=== PATIENT | male | born 1935 | race African-American/Black ===

== ENCOUNTER 2017-11-17 22:16 | Inpatient (IN) | payer OTHER ==
[~2017-11-17] VITALS: Ht 180.3 cm; Wt 74.6 kg
--- NOTE | ~2017-11-17 | EKG ---
[address] [email or web address] [address] ELECTROCARDIOGRAM REPORT Name: CLAY RASMUSSEN Room #: 242-P [facility] IN M.R.#: [id number] Admission: 11/17/17 Attend Phys: Robert Oro MD Discharge: Date of : 31 Report #: [id number] THIS REPORT FOR: //name// [facility] ED Test Date: 2017-11-17 Test Time: 22:46:59 Pat Name: CLAY RASMUSSEN Department: Room: Gender: M Medical Research Tech: MADALYN : 1935 Requested By: Darrell Rubio Order Number: [id number] MD: Martín Moreira Measurements Intervals [place] Rate: 95 P: 71 HI: 174 QRS: 97 QRSD: 93 T: 106 QT: 361 QTc: 454 Interpretive Statements Sinus rhythm Ventricular premature complex Probable left atrial enlargement Consider left ventricular hypertrophy Borderline T abnormalities, lateral leads Electronically Signed On 11-18-2017 12:17:30 CDT by Martín Moreira [email or web address] <ELECTRONICALLY SIGNED> By: Martín Moreira MD 11/18/17 1217 [id number] 45 Martín Moreira MD /CASSIE
--- NOTE | ~2017-11-17 | H ---
[facility] [place] [address] HISTORY AND PHYSICAL Name: CLAY RAMOS Room #: 406-P ADM IN M.R.#: [id number] Admission: 11/17/17 Attend Phys: Dimitri Roy MD Discharge: Date of : 33 Report #: [id number] THIS REPORT FOR: //name// CC: [facility] Dimitri Lewis MD DATE OF SERVICE: 11/18/2017 CHIEF COMPLAINT: Generalized weakness. HISTORY OF PRESENT ILLNESS: The patient is an 82-year-old male who presents to the [facility] Emergency Department from his group home, [facility] from across the street. He only arrived there about 4 days. Prior to that, he had been hospitalized at [facility] and followup initially with chest pain and mental status changes, then later transferred to what I believe must have been a medical unit for evaluation and rehabilitation. When they felt he had reached maximal benefit. He was transferred to a nursing home unit close to [facility]. However, his was very dissatisfied with the facility and they went home almost immediately. He was there several days until they were able to make arrangements to transfer him to [facility]. In last several months, he has had increasing problems with falls and gait instability and confusion. Actually, his told regarding conversations that she had first noted memory problems dating back almost 12 years. In particular, however, in the last several months, his clinical situation has gotten worse. He needs help dressing. He sometimes cannot walk. He is really not eating well, although did eat well previously. They just returned from a trip to the daughter and son-in-law, out of the state. The trip was uneventful and well otherwise. At baseline, the patient is positive and able to ambulate with his roller walker, according to the . He normally follows with ____ at [facility] and with Dr. Carlos Weaver for his Cardiology and with Dr. Anibal Hare, Nephrology. The patient is often providing me more information today. PAST MEDICAL HISTORY: Hypertension, type 2 diabetes mellitus, hyperlipidemia, coronary artery disease (coronary artery bypass surgery x 4 vessels?, at least 15 years ago), permanent pacemaker implanted in late 2014, recent diagnosis of dementia. ____ and debility. MEDICATIONS AT HOME: Multivitamins with Lutein, Avodart, aspirin, torsemide, terazosin, loratadine, gabapentin, Lantus at bedtime, amantadine, Lyrica, losartan, fenofibrate, amlodipine, benazepril, metoprolol, and p.r.n. lorazepam. [address] [address] HISTORY AND PHYSICAL Name: CLAY RAMOS Room #: 406-P [facility] IN M.R.#: [id number] Admission: 11/17/17 Attend Phys: Dimitri Roy MD Discharge: Date of : 31 Report #: [id number] ALLERGIES: He has no known drug allergies. FAMILY HISTORY: Not available. 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 He smokes a pipe occasionally, but no other known ____. REVIEW OF SYSTEMS: The patient is comatose and the only systems review information that could be obtained documented in the chart. PHYSICAL EXAMINATION: VITAL SIGNS: On arrival in the Emergency Room pulse was 91, respirations 20 per minute, oxygen saturation was 95% O2 nasal cannula (no prior history of lung disease), temperature was 37.5 degrees Celsius, blood pressure 123/70. Reported weight is 151 pounds. GENERAL: The patient is a well-developed, older male with frontal bossing. HEENT: Extraocular muscles could not be adequately tested. Pupils are pinpoint bilaterally but responsive to light. Oropharynx is dry. Dentition is fairly good. No redness or exudates or lesions. NECK AND BACK: No adenopathy or thyromegaly, mass or bruit. No evidence of trauma. There is significant generalized rigidity. CHEST: Thorax is symmetrical. Lungs clear to auscultation bilaterally. Permanent pacemaker in the left chest wall, prior CABG are noted, well healed. CARDIAC: Revealed a regular rhythm without significant murmur, gallop or rub. ABDOMEN: Soft, bowel sounds present, but diminished. No visceromegaly or masses. EXTREMITIES: Peripheral pulses are easily palpated in all 4 extremities. Cogwheel rigidity noted in both upper extremities. NEUROLOGIC: No Babinski sign bilaterally. The patient raises his eyebrows when spoken to, but does not open his eyes spontaneously. His smile is almost crooked with looking noted on the left side of the face. The patient grasps with each hand independently on command and is able to move all feet inadvertently on command. He is able to raise his eyebrows and then squint eyebrows and eyelids on command. Movements are generally very dramatic and his facial affect his rather flat. LABORATORY DATA: EKG normal sinus rhythm with left ventricular hypertrophy and no evidence of cranial infarct. Labs show lactic acid of 0.9, which is normal. NT-proBNP 1154, which is elevated. Urine drug screen was completely negative. Urinalysis specific gravity of 1.020 with pH of less than 85.5. Urine was yellow and cloudy and negative for ketones, nitrite and bilirubin and 1+ for protein, 3+ for blood, 2+ for urine leukocyte esterase. Microscopic evaluation for 3-10 red blood cells per high power field, greater than 25 white blood cells [facility] [address] [place] [address] HISTORY AND PHYSICAL Name: CLAY RAMOS Room #: 406-P ADM IN M.R.#: [id number] Admission: 11/17/17 Attend Phys: Dimitri Roy MD Discharge: Date of : 33 Report #: [id number] per high power field, many white blood cell clumps, and many bacteria. No squamous epithelial cells or urine crystals or gas or mucus was seen and the urine glucose was negative. Blood chemistry showed a sodium of 145, potassium 4.2, chloride of 100, bicarbonate 25, BUN of 107, creatinine 5.9. The anion gap is 12. The estimated GFR was 11. Glucose was 231, calcium was 9.7. Troponin was 4. The CBC showed a white blood cell count of 12,000 with 90% segs, no bands, 3.4% lymphs, 6.1% monocytes, 0.1% eosinophils and 0.4% basophils. The ANC was 10.8, slightly elevated. Platelet count was 199,000, hemoglobin was 12.4, hematocrit of 6.4 and the red blood cell indices were essentially normal. Chest x-ray showed a possible small left pleural effusion versus left basilar parenchymal scarring and a retrocardiac opacity, which could represent infiltrate, scarring, atelectasis or most likely a mass. 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 Please note that the patient was given doses of vancomycin, Zosyn and levofloxacin in the Emergency Department. ASSESSMENT AND PLAN: 1. Altered mental status and gait disturbance and rigidity - I think the patient may have Parkinson's disease, given the cogwheeling, it was very obvious on exam today. I did step out and ask his about other symptoms such as bradykinesia, loss of facial affect, and tremor. She did mention that she had been seeing all those things in recent months. I had not discussed it with her physician. She did make it clear that he had a living will that she would bring copies of in the afternoon and that he would not want to be resuscitated in the event of his cardiac and/or pulmonary demise. This confirms my conversation earlier today with his overnight ICU nurse. At this point, all of the patient's multitude of other problems, I think nutrition and enteric access for medications will be very important. I asked for her permission to give him a Dobhoff feeding tube and we will start tube feedings as soon as that has been accomplished. 2. Acute kidney injury on chronic kidney disease, stage V - I read and appreciated Dr. Lewis's consult note and will defer to his expertise. Incidentally, repeat potassium the day after the initial specimen was hemolyzed and showed a potassium of 5.0, showed a potassium level of 4.3. For now, gentle rehydration and attention to nutritional issues will be pursued. 3. Dementia. This may be Lewy body disease and I will request a neurology consult. I will start the patient on levodopa/carbidopa while he is hospitalized. 4. Dehydration - IV fluids as above, gently. 5. Hypertension - we will defer to Dr. Lewis's recommendation and avoid aggressive over management may compromise renal perfusion. 6. Coronary artery disease - family recently mentioned that the patient has had a complaint of chest pain while at [facility]. This was apparently looked into and we will request records so we can be review them. 7. Hypothyroidism - note resumption of levothyroxine by Dr. Carlos Weaver. [facility] [place] [address] HISTORY AND PHYSICAL Name: CLAY RAMOS Room #: 406-P ADM IN M.R.#: [id number] Admission: 11/17/17 Attend Phys: Dimitri Roy MD Discharge: Date of : 33 Report #: [id number] 8. Retrocardiac mass versus infiltrate - we will continue antibiotics with a likely source is probably renal. 9. Urinary tract infection - the antibiotics orders, culture pending. 10. Hyperlipidemia - we will resume treatment when the patient better able to take medications. 11. Type 2 diabetes mellitus, for a long time. We will put him on tube feedings and serial Accu-Cheks and a sliding scale. <ELECTRONICALLY SIGNED> By: Robert Oro MD 11/20/17 1946 1157 1414 Robert Oro MD /nt
--- NOTE | ~2017-11-17 | HC ---
[facility] [place] [address] CONSULTATION Name: CLAY RASMUSSEN Room #: 242-P ADM IN M.R.#: [id number] Admission: 11/17/17 Attend Phys: Dimitri Roy MD Discharge: Date of : 33 Report #: [id number] THIS REPORT FOR: //name// CC: Dimitri Roy DATE OF SERVICE: 11/18/2017 HISTORY OF PRESENT ILLNESS: This is an 82-year-old male patient who was evaluated by me at the request of Dr. Oro. I discussed the patient with him and he very kindly updated me on the patient's history before I saw this patient. I talked to the nurses looking after this patient. No family member is here. Neurology consultation is requested because this patient had some rigidity and some tremor. I reviewed the record and it looks like this patient was conversational, but then he had an acute onset of not responsiveness. I do not know whether any focal neurological deficit was noticed that time. He has become better, but he is still not back to the baseline. He was able to carry out a conversation with me. He denies any rigidity, but when I saw him, he does have rigidity and some tremor. REVIEW OF SYSTEMS: Indicate that I have talked to Dr. Oro. He was at [facility] and then went to [facility] and then apparently the took him home. Again, the history is not very clear in him, but looks like he has prolonged illness. He has memory deficit which is going on for some time. However, it has become worse recently. If I understand from the records, he does have a pacemaker. How long he has his pacemaker is not clear and I do not know whether it is MRI compatible or not. He does have generalized muscle weakness, chronic kidney disease, hypertension. He does have one of the medication is gabapentin. He is on Aricept, so I suspect some time they must have figured out that he has some dementia. I carried out the 14-point review of system from the record and this was his relevant 14-point review of system. He does not look like his vision and ENT is any different. He is not complaining of any chest pain, respiratory difficulty, new musculoskeletal, constitutional, dermatological, hematological, psychiatric, throat, allergic symptom. His creatinine has gone up from his baseline creatinine. PAST MEDICAL HISTORY: Positive for some decreased memory for a long time which has become worse recently. FAMILY HISTORY: I do not find any family history for any early dementia. SOCIAL HISTORY: He says he does not drink alcohol. PHYSICAL EXAMINATION: Indicate he is alert. He is responsive. He does not know what month it is. He does not know what day it is. His speech looks fair, but memory and fund of knowledge is diminished. Cranial nerve examination 2-12 looks mostly unremarkable. He moves all 4 extremities. He does not understand [facility] [address] [facility] [place] [address] CONSULTATION Name: CLAY RASMUSSEN Room #: 242-P [facility] IN M.R.#: [id number] Admission: 11/17/17 Attend Phys: Dimitri Roy MD Discharge: Date of : 33 Report #: [id number] to tell me about the position sense. His tone is symmetrical. He did not understand the instruction for cerebellar sign and could not cooperate with the fundus examination. He has no meningeal sign. There is no carotid bruit. He is reasonably well-developed individual who does not have any dysmorphic features of eyes, ears and face. His vision and hearing looks adequate. His blood pressure is 150/79, respirations 15, pulse is 80, and temperature is 99.6. LABORATORY DATA: Indicate hemoglobin of 11.9. His pulses are difficult to feel. His cardiac examination is unremarkable. He does not have any respiratory difficulty or rhonchi on either side. Blood pressure is 150/79, pulse is 80, temperature is 99.6 and respiration is 15. He did have a CT scan of the head, which showed extensive changes. His WBC count is 11.9. His last TSH was normal. He does have some rigidity and tremor. IMPRESSION: This patient does have some rigidity and tremor. I think the best is to work with physical therapy rather than starting him on any treatment for next few days. If that does not respond, then we can give him a trial with the medication, but that may bring the hallucinations on. If he did not have any workup like MRI and an EEG, I think we should do that. RECOMMENDATION: He cannot have an MRI because of pacemaker. So, workup is going to be limited. We will check a B12 level. I will check an EEG. I will suggest working with him for physical therapy rather than starting him on pharmacological intervention. Thank you very much for this referral. By: 1350 [id number] Wellington Rice MD /naresh
--- NOTE | ~2017-11-17 | HC ---
[facility] [address] [place] [address] CONSULTATION Name: CLAY RAMOS Room #: 363-P [facility] IN M.R.#: [id number] Admission: 11/17/17 Attend Phys: Dimitri Roy MD Discharge: 11/24/17 Date of : 31 Report #: [id number] THIS REPORT FOR: //name// CC: Robert Roy DATE OF SERVICE: 11/18/2017 REASON FOR CONSULTATION: Chronic kidney disease. HISTORY OF PRESENT ILLNESS: This is an 82-year-old male who has been followed for a long time in our office by Dr. Anibal Hare. The patient has chronic kidney disease, stage 5. He has a long history of diabetes and hypertension. It is also possible (see family history below) that he had some longstanding focal sclerosis. Nevertheless, he has a baseline creatinine in the office from a couple of months ago of about 3.7-3.8. Again, he has long-term on some antihypertensive meds. I reviewed the last note from the office and Dr. Hare had commented that he was getting worse and there was concern of the need to start dialysis at that time. The patient apparently last week was in [facility] where he was admitted with some mental status changes and weakness, poor intake of food and fluid, and went from there to the [facility]. He was at the [facility] for less than 24 hours and then overnight had a period of unresponsiveness and was sent to the Emergency Room here. Upon arriving here, he was transiently hypotensive. Original blood pressure was 126/70, but he had one blood pressure a couple of hours later of 89/58, heart rate was never elevated. He has had no fever. Oxygen saturations were good throughout. The Emergency Room did a CT scan of his head, which showed extensive amounts of atrophy as well as some old right thalamic infarcts. No acute evidence of new disease was present. He also had a chest x-ray done and I have reviewed that a bit. There are very mild changes, but nothing indicating acute volume overload or infiltrate. He was put in the Intensive Care Unit. We were asked to see him for followup of his chronic Kidney disease. In talking to the patient now, he is lethargic. He cannot give me any history of meaning. His is at the bedside, but she is a poor historian, is not aware much in the way of details of what went on at [facility], or any other recent changes. She does state that over the past few weeks, he has been doing more poorly with decreased intake of food and fluid. She has had a hard time getting him to eat. No described swallowing difficulties. No nausea or vomiting. No new dyspnea. It has been more of a matter of lethargy, at times difficulty speaking and generalized failure to thrive. PAST MEDICAL HISTORY: Hypertension dating back over 50 years, diabetes mellitus type 2 dating back over 20 years or more. He has a history of coronary artery [facility] [address] [place] [address] CONSULTATION Name: CLAY RAMOS Room #: 363-P DIS IN M.R.#: [id number] Admission: 11/17/17 Attend Phys: Dimitri Roy MD Discharge: 11/24/17 Date of : 33 Report #: [id number] disease and he had a coronary artery bypass graft surgery in 1998. He has a history of gout, benign prostate hypertrophy. He also has a pacemaker present. He has mild anemia of chronic kidney disease. He is on a couple of medications suggesting he has some chronic dementia. He also more recently was diagnosed with some hypothyroidism and was on some thyroid replacement. MEDICATIONS: As listed from [facility] and again, he was there for only 24 hours or less include dutasteride 0.5 mg daily, aspirin 81 mg daily, torsemide 20 mg daily, terazosin 10 mg daily, Claritin 10 mg daily, gabapentin 300 mg t.i.d., Lantus insulin 15 units daily, Namenda 7 mg daily, Lyrica 50 mg b.i.d., losartan 100 mg daily, fenofibrate 160 mg daily, amlodipine 10 mg daily, donepezil 10 mg daily, metoprolol 50 mg daily, Ativan 0.5 mg p.r.n. ALLERGIES: No known medical allergies. FAMILY HISTORY: Very strong for renal disease. He had 5 children. At least 3 ended up with renal failure. Two of the sons are now , but I think both had received kidney transplants. Daughter continues to be a long-term patient of the practice and is doing very well with a functioning kidney transplant. She had the familial focal sclerosis. Of the sons, I think one had focal sclerosis and one had diabetes as the cause of the ESRD. SOCIAL HISTORY: The patient is to his second . Chronically lives in [place], [place]. He is retired. REVIEW OF SYSTEMS: Basically as per the history of present illness. He cannot give me much other history at this time. PHYSICAL EXAMINATION: GENERAL: Elderly-appearing male seen in the Intensive Care Unit. VITAL SIGNS: Blood pressure 154/77, heart rate is 87, temperature 98.9, oxygen saturation 100%. HEENT: Shows pupils are 3 mm and reactive. Sclerae nonicteric. Oral mucosa is moist. NECK: Veins are not distended. I hear no bruits. Neck is supple, no adenopathy. CHEST: Fairly clear bilaterally, moderate excursion. CARDIOVASCULAR: Heart has a regular rate and rhythm, no gallop or rub. ABDOMEN: Soft, nontender, not distended. Few bowel sounds are present. No organomegaly or masses are palpable. I cannot percuss or palpate an enlarged bladder. EXTREMITIES: Showed no peripheral edema at this time. He has 2+ peripheral pulses. NEUROLOGIC: He is lethargic. At times, he answers questions appropriately, although he is unaware that he is at [facility]. The other time, his speech drifts off and become somewhat garbled and difficult to understand. [facility] [address] [place] [address] CONSULTATION Name: CLAY RAMOS Room #: 363-P [facility] IN M.R.#: [id number] Admission: 11/17/17 Attend Phys: Dimitri Roy MD Discharge: 11/24/17 Date of : 33 Report #: [id number] Cranial nerves all appear intact. He has fairly good strength symmetrically bilaterally. I see no focal or lateralizing signs at this time. LABORATORY DATA: On admission, sodium 143, potassium 4.2, chloride 106, bicarbonate 25, BUN 107, creatinine 5.4, glucose 155, AST 97, ALT 63, total bilirubin 0.7, calcium 8.8, total protein 6.8, albumin 2.6. Lactate 0.9. White count 12.0, hemoglobin 12.4, hematocrit 36.4, platelets 199,000. Differential on the white count 90 segs, 3 bands, 7 lymphs, 5 monocytes. Urinalysis, specific gravity 1.020, pH 5.5, 1+ protein, 3+ blood, 3+ leukocytes and 25 white cells. Blood gas pH 7.34, pCO2 of 37.9, pO2 of 66.8. ASSESSMENT: 1. Chronic kidney disease, stage 5. This level of function is substantially worse than his baseline. He actually has improved mildly overnight with some moderate range IV fluids. It looks like he had some transient hypotension. With the fluids, his urine output appears to be picking up and his creatinine level appears to be coming down. I will leave him on a bit of IV fluids at this time and hold his other medications and see how he responds. Regardless of his response, he is certainly well-established as a chronic kidney disease stage 5 patient. He may need dialysis. I have spoken a little bit about this with the , but she is a bit uncertain at this time about his wishes and what we wanted to do going forward. We will continue to work with that. 2. Hypertension, longstanding. Again, he was transiently low in the Emergency Room. I am going to hold his antihypertensives at this time and he has several of them. I am sure we will need to get him back on those, but we will keep him on the fluid and off the antihypertensives currently. 3. Mental status changes. He was on numerous different medications, which might have been involved. Also, his blood pressure went down and his renal function worsened, all that could be contributing. He also has some dementia, so it will be difficult to sort out. I think the best course at this time is to hold his medications and see how he responds. 4. Hypothyroidism. This is a more recent problem. I will get him back on the dose of thyroid listed in the office. 5. Coronary artery disease, nearly 20 years post-bypass graft surgery, nothing to suggest active symptoms at this time. 6. Potential chronic dementia. If that is the case, it could well be that this is just either an exacerbation or generalized worsening of that. We will have to certainly factor that into any long-term decisions. PLAN: 1. Continue moderate IV fluids for volume replacement. We will see how his creatinine and blood pressure respond. 2. I will get him back on his thyroid replacement. 3. Follow up labs. 4. Potential for additional neurologic evaluation. 5. I will access the records from both [facility] and our office to [facility] [address] [place] [address] CONSULTATION Name: CLAY RAMOS Room #: 363-P DIS IN M.R.#: [id number] Admission: 11/17/17 Attend Phys: Dimitri Roy MD Discharge: 11/24/17 Date of : 33 Report #: [id number] compare what has been going on more recently. 6. We will follow along the care of this chronically ill patient. <ELECTRONICALLY SIGNED> By: Gal Lewis MD 11/26/17 0712 1018 1913 Gal Lewis MD /nt
--- NOTE | ~2017-11-17 | EEG ---
[facility] [place] [address] ELECTROENCEPHALOGRAM Name: CLAY RAMOS Room #: 239-P ADM IN M.R.#: [id number] Admission: 11/17/17 Attend Phys: Dimitri Roy MD Discharge: Date of : 33 Report #: [id number] THIS REPORT FOR: //name// CC: Dimitri Roy DATE OF SERVICE: 11/21/2017 This patient is being evaluated for altered mental status. EEG was done by placing the electrodes by standard 10/20 system of electrode placement. Both referential and sequential montages were used for recording. Background activity in this patient's EEG is about 6-7 Hz and 30 microvolt. It is a symmetrical activity, but it is slow on both sides. Photic stimulation is unremarkable. The patient's EEG became somewhat more slow and that may be associated with slowing. Throughout the record, no active epileptiform activity was noticed. IMPRESSION: This is an abnormal EEG because it is disorganized and poorly formed, that is a nonspecific abnormality, which can occur with encephalopathy, effect of psychotropic medication, dementia, etc. Clinical correlation is recommended. By: 185 09 Wellington Rice MD /nt
--- NOTE | ~2017-11-17 | EKG ---
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 : 1935 Requested By: Dimitri Roy Order Number: [id number] MD: Dilip Bailey Measurements Intervals [place] Rate: 96 P: [place]: QRS: 94 QRSD: 86 T: 90 QT: 369 QTc: 467 Interpretive Statements Atrial fibrillation Right axis deviation Nonspecific T abnormalities, lateral leads No previous ECG available for comparison Electronically Signed On 11-22-2017 8:07:15 CDT by Dilip Bailey [email or web address] <ELECTRONICALLY SIGNED> By: Dilip Bailey MD, [facility] 11/22/17 0807 D: 050 1040 Dilip Bailey MD, FACC /EPI
[2017-11-17 22:22] VITALS: BP 126/70
[2017-11-17 23:22] LABS: ABSOLUTE NEUTROPHILS 10.8 thou/uL (1.4-8.2); BASOPHILS 0.4 % (0.0-2.0); EOSINOPHILS 0.1 % (0.0-3.0); HEMATOCRIT 36.4 % (42.0-52.0); HEMOGLOBIN 12.4 gm/dL (14.0-18.0); LYMPHOCYTES 3.4 % (24.0-44.0); MCH 29.6 pg (26.0-34.0); MCHC 34.1 g/dL (28.0-37.0); MCV 86.7 fL (80.0-100.0); MONOCYTES 6.1 % (1.0-8.0); PLATELET COUNT 199 thou/uL (150-400); RDW 14.2 % (10.5-14.5)
[2017-11-17 23:23] LABS: URINE BILIRUBIN NEGATIVE (Negative); URINE BLOOD 3+ (Negative); URINE CLARITY CLOUDY; URINE COLOR YELLOW; URINE GLUCOSE-RANDOM* NEGATIVE (Negative); URINE KETONES NEGATIVE (Negative); URINE LEUKOCYTES 3+ (Negative); URINE NITRITE NEGATIVE (Negative); URINE PROTEIN (DIPSTICK) 1+ (Negative); URINE UROBILINOGEN 0.2 E.U./dl (0.2-1.0)
[2017-11-17 23:32] LABS: ANION GAP 12 mmol/L (7-16); BUN 107 mg/dL (7-18); CALCIUM 9.7 mg/dL (8.5-10.1); CHLORIDE 106 mmol/L (98-107); CO2 25 mmol/L (21-32); CREATININE 5.9 mg/dL (0.7-1.3); GLUCOSE 231 mg/dL (74-106); POTASSIUM 4.2 mmol/L (3.5-5.1); SODIUM 143 mmol/L (136-145)
[2017-11-17 23:32] LABS: AMP/METHAMP Negative (Negative); BARBITURATES Negative (Negative); BENZODIAZEPINES Negative (Negative); COCAINE Negative (Negative); METHADONE Negative (Negative); OPIATES Negative (Negative); PCP Negative (Negative)
[2017-11-17 23:35] LABS: BACTERIA >30 Many /HPF (None Seen); CASTS None Seen /LPF (None Seen); CRYSTALS None Seen /LPF (None Seen); MUCUS None Seen strn/LPF (None Seen); SQUAMOUS None Seen /LPF (0-3); URINE RBC 3-10 Few /HPF (0-2); URINE WBC >25 Many /HPF (0-5); WBC CLUMPS Many (None Seen)
[2017-11-17 23:41] LABS: TROPONIN-I < 0.04 ng/mL (<0.06)
[2017-11-18] VITALS (38 sets, daily range): BP systolic 89–160; BP diastolic 58–91
[2017-11-18 01:53] LABS: BE(vivo) -5.4 mmol/L (-2 to +3); HCO3 19.9 mmol/L (22.0-26.0); PCO2 37.9 mmHg (35.0-45.0); PO2 66.8 mmHg (80.0-100.0); pH 7.338 (7.360-7.450); sO2 92.3 % (92.0-98.0)
[2017-11-18] MEDS ORDERED: AVODART0.5 MG PO (02:18)
[2017-11-18] MEDS ORDERED: VITRUM SENIOR1 EACH PO (02:18)
[2017-11-18] MEDS ORDERED: TERAZOSIN HCL10 MG PO (02:19)
[2017-11-18] MEDS ORDERED: ASPIR 8181 M1 PO (02:19)
[2017-11-18] MEDS ORDERED: DEMADEX20 MG PO (02:19)
[2017-11-18] MEDS ORDERED: CLARITIN10 MG PO (02:19)
[2017-11-18] MEDS ORDERED: NEURONTIN 300300 M1 PO (02:20)
[2017-11-18] MEDS ORDERED: LANTUS100 UNIT/M SUBQ (02:20)
[2017-11-18] MEDS ORDERED: NAMENDA 5 MG TAB5 M1 PO (02:21)
[2017-11-18] MEDS ORDERED: LYRICA 50 MG50 MG PO (02:21)
[2017-11-18] MEDS ORDERED: COZAAR 50 MG TA50 M2 PO (02:22)
[2017-11-18] MEDS ORDERED: NORVASC10 MG PO (02:23)
[2017-11-18] MEDS ORDERED: TRIGLIDE160 MG PO (02:23)
[2017-11-18] MEDS ORDERED: ARICEPT 5 MG TAB5 MG PO (02:24)
[2017-11-18] MEDS ORDERED: TOPROL XL25 MG PO (02:24)
[2017-11-18] MEDS ORDERED: ATIVAN0.5 MG PO (02:25)
[2017-11-18 05:06] LABS: HEMATOCRIT 34.9 % (42.0-52.0); HEMOGLOBIN 11.8 gm/dL (14.0-18.0); MCH 29.9 pg (26.0-34.0); MCHC 33.8 g/dL (28.0-37.0); MCV 88.2 fL (80.0-100.0); PLATELET COUNT 175 thou/uL (150-400); RBC 3.95 mil/uL (4.50-6.00); RDW 14.4 % (10.5-14.5); WBC 11.9 thou/uL (4.0-11.0)
[2017-11-18 05:23] LABS: ALBUMIN 2.6 g/dL (3.4-5.0); CALCIUM 8.8 mg/dL (8.5-10.1); CREATININE 5.4 mg/dL (0.7-1.3); DIRECT BILIRUBIN 0.1 mg/dL (<0.1-0.3); TOTAL BILIRUBIN 0.7 mg/dL (<0.1-1.0); TOTAL PROTEIN 6.8 g/dL (6.4-8.2)
[2017-11-18] MEDS ORDERED: NAMENDA XR7 MG PO (06:07)
[2017-11-18 06:36] LABS: ABSOLUTE NEUTROPHILS 10.5 thou/uL (1.4-8.2); ANISOCYTOSIS SLIGHT
[2017-11-19] VITALS (14 sets, daily range): BP systolic 107–168; BP diastolic 69–137
[2017-11-19 04:07] LABS: HEMOGLOBIN 12.2 gm/dL (14.0-18.0); MCH 29.5 pg (26.0-34.0); MCHC 33.8 g/dL (28.0-37.0); MCV 87.4 fL (80.0-100.0); RBC 4.12 mil/uL (4.50-6.00); RDW 14.5 % (10.5-14.5); WBC 13.4 thou/uL (4.0-11.0)
[2017-11-19 04:17] LABS: ALBUMIN 2.6 g/dL (3.4-5.0); CALCIUM 9.1 mg/dL (8.5-10.1); CREATININE 4.6 mg/dL (0.7-1.3); PHOSPHORUS 3.6 mg/dL (2.5-4.9); POTASSIUM 3.8 mmol/L (3.5-5.1)
[2017-11-20] VITALS (7 sets, daily range): BP systolic 101–192; BP diastolic 60–88
[2017-11-20 03:04] LABS: ALBUMIN 2.6 g/dL (3.4-5.0); CALCIUM 8.9 mg/dL (8.5-10.1); CREATININE 3.9 mg/dL (0.7-1.3); PHOSPHORUS 2.7 mg/dL (2.5-4.9); POTASSIUM 3.8 mmol/L (3.5-5.1)
[2017-11-21] VITALS (29 sets, daily range): BP systolic 120–184; BP diastolic 66–149
[2017-11-21 05:39] LABS: ALBUMIN 2.7 g/dL (3.4-5.0); CALCIUM 9.2 mg/dL (8.5-10.1); CREATININE 3.5 mg/dL (0.7-1.3); PHOSPHORUS 2.7 mg/dL (2.5-4.9); POTASSIUM 3.8 mmol/L (3.5-5.1)
[2017-11-21 10:39] LABS: ABSOLUTE NEUTROPHILS 9.8 thou/uL (1.4-8.2); BASOPHILS 0.4 % (0.0-2.0); EOSINOPHILS 1.5 % (0.0-3.0); HEMATOCRIT 34.9 % (42.0-52.0); HEMOGLOBIN 11.8 gm/dL (14.0-18.0); LYMPHOCYTES 8.8 % (24.0-44.0); MCH 29.1 pg (26.0-34.0); MCHC 33.9 g/dL (28.0-37.0); MCV 85.8 fL (80.0-100.0); MONOCYTES 6.2 % (1.0-8.0); PLATELET COUNT 219 thou/uL (150-400); POLYS 83.1 % (36.0-66.0); RBC 4.07 mil/uL (4.50-6.00); RDW 14.3 % (10.5-14.5); WBC 11.8 thou/uL (4.0-11.0)
[2017-11-21 10:46] LABS: CALCIUM 9.2 mg/dL (8.5-10.1); CREATININE 3.3 mg/dL (0.7-1.3)
[2017-11-21 10:51] LABS: APTT 33.3 Seconds (24.5-32.8); INR 1.1; PROTIME 11.1 Seconds (9.3-11.4)
[2017-11-21 10:55] LABS: TROPONIN-I 0.05 ng/mL (<0.06)
[2017-11-21 12:08] LABS: CALCIUM 9.2 mg/dL (8.5-10.1); CREATININE 3.3 mg/dL (0.7-1.3)
[2017-11-21 12:20] LABS: ALBUMIN 2.6 g/dL (3.4-5.0); TOTAL BILIRUBIN 0.4 mg/dL (<0.1-1.0); TOTAL PROTEIN 6.9 g/dL (6.4-8.2)
[2017-11-21 13:02] LABS: URINE BILIRUBIN NEGATIVE (Negative); URINE BLOOD 3+ (Negative); URINE CLARITY CLEAR; URINE COLOR YELLOW; URINE GLUCOSE-RANDOM* NEGATIVE (Negative); URINE KETONES NEGATIVE (Negative); URINE LEUKOCYTES 2+ (Negative); URINE NITRITE NEGATIVE (Negative); URINE PROTEIN (DIPSTICK) 1+ (Negative); URINE UROBILINOGEN 0.2 E.U./dl (0.2-1.0)
[2017-11-21 13:18] LABS: CASTS None Seen /LPF (None Seen); SQUAMOUS 0-3 Few /LPF (0-3)
[2017-11-21 13:19] LABS: URINE RBC 3-10 Few /HPF (0-2); URINE WBC 6-15 Few /HPF (0-5)
[2017-11-21 13:20] LABS: BACTERIA 1-9 Few /HPF (None Seen); CRYSTALS None Seen /LPF (None Seen)
[2017-11-22] VITALS (10 sets, daily range): BP systolic 129–181; BP diastolic 74–105
[2017-11-22 06:36] LABS: ALBUMIN 2.8 g/dL (3.4-5.0); CALCIUM 9.2 mg/dL (8.5-10.1); CREATININE 3.3 mg/dL (0.7-1.3); PHOSPHORUS 3.6 mg/dL (2.5-4.9)
[2017-11-23 03:39] LABS: CALCIUM 8.9 mg/dL (8.5-10.1); PHOSPHORUS 2.5 mg/dL (2.5-4.9); POTASSIUM 3.9 mmol/L (3.5-5.1)
[2017-11-23 04:19] VITALS: BP 179/92
[2017-11-23 06:30] VITALS: BP 157/83
[2017-11-23 07:40] VITALS: BP 160/90
[2017-11-23 12:23] VITALS: BP 152/82
[2017-11-23 17:48] VITALS: BP 141/81
[2017-11-23 19:13] VITALS: BP 154/86
[2017-11-24 04:00] VITALS: BP 141/84
[2017-11-24 06:54] LABS: HEMATOCRIT 32.4 % (42.0-52.0); HEMOGLOBIN 10.9 gm/dL (14.0-18.0); MCH 28.8 pg (26.0-34.0); MCHC 33.6 g/dL (28.0-37.0); MCV 85.9 fL (80.0-100.0); RBC 3.77 mil/uL (4.50-6.00); RDW 14.3 % (10.5-14.5)
[2017-11-24 07:09] LABS: ALBUMIN 2.5 g/dL (3.4-5.0); CALCIUM 8.9 mg/dL (8.5-10.1); CREATININE 2.8 mg/dL (0.7-1.3); PHOSPHORUS 3.2 mg/dL (2.5-4.9); POTASSIUM 3.4 mmol/L (3.5-5.1)
[2017-11-24 07:15] VITALS: BP 154/72
[2017-11-24 11:49] VITALS: BP 121/73
[2017-11-24] MEDS ORDERED: LEVAQUIN 250 M250 MG PO (12:38)
[2017-11-24] MEDS ORDERED: LYRICA25 MG PO (12:39)
[2017-11-24] MEDS ORDERED: SINEMET 25-1001 EAC1 PO (12:44)
[2017-11-24] MEDS ORDERED: CARDURA4 MG PO (12:48)
[2017-11-24] MEDS ORDERED: LOPRESSOR50 PO (12:49)
[2017-11-24] MEDS ORDERED: PROBIOTIC1 EAC1 PO (12:53)
[2017-11-24 16:28] VITALS: BP 147/86
== END 2017-11-24 16:45 | DRG 871 ==
LOC: ER 22:16 → EROBS 23:49 → ICU 23:49 → 4N 11-20 16:33 → ICU 11-21 10:30 → 3W 11-22 02:57
PROVIDERS: Hospitalist; Internal Medicine; Internal Medicine Nephrology; Nurse Practitioner; Psychiatry & Neurology Neuromuscular Medicine
PROC: 4A00X4Z Measurement of Central Nervous Electrical Activity, External Approach (ICD-10-PCS; principal; 2017-11-21)
DX: A41.9 Sepsis, unspecified organism (principal); G92 Toxic encephalopathy; N39.0 Urinary tract infection, site not specified; N18.5 Chronic kidney disease, stage 5; N17.9 Acute kidney failure, unspecified; I12.0 Hypertensive chronic kidney disease with stage 5 chronic kidney disease or end stage renal disease; E87.0 Hyperosmolality and hypernatremia; N18.9 Chronic kidney disease, unspecified; R65.20 Severe sepsis without septic shock; E11.22 Type 2 diabetes mellitus with diabetic chronic kidney disease; I25.10 Atherosclerotic heart disease of native coronary artery without angina pectoris; M10.9 Gout, unspecified; N40.0 Benign prostatic hyperplasia without lower urinary tract symptoms; E03.9 Hypothyroidism, unspecified; R25.1 Tremor, unspecified; E78.5 Hyperlipidemia, unspecified; E86.0 Dehydration; I48.91 Unspecified atrial fibrillation; R13.10 Dysphagia, unspecified; R13.12 Dysphagia, oropharyngeal phase; B96.20 Unspecified Escherichia coli [E. coli] as the cause of diseases classified elsewhere; G20 Parkinson's disease; F02.80 Dementia in other diseases classified elsewhere, unspecified severity, without behavioral disturbance, psychotic disturbance, mood disturbance, and anxiety; Z95.0 Presence of cardiac pacemaker; Z79.899 Other long term (current) drug therapy; Z79.82 Long term (current) use of aspirin; Z95.1 Presence of aortocoronary bypass graft; Z83.3 Family history of diabetes mellitus; Z84.1 Family history of disorders of kidney and ureter; Z86.73 Personal history of transient ischemic attack (TIA), and cerebral infarction without residual deficits
CPT/HCPCS: 10078; 10790; 10879

== ENCOUNTER 2018-03-26 21:08 | Inpatient (IN) | payer OTHER ==
[~2018-03-26] VITALS: Ht 185.4 cm; Wt 79.1 kg
--- NOTE | ~2018-03-26 | O ---
[facility] [place] [address] [place] [address] OPERATIVE REPORT Name: CLAY RAMOS Room #: 355-P ADM IN M.R.#: [id number] Admission: 03/26/18 Attend Phys: Dimitri Roy MD Discharge: Date of : 33 Report #: [id number] THIS REPORT FOR: //name// CC: Gerard Roy DATE OF SERVICE: 03/29/2018 PREOPERATIVE DIAGNOSIS: Left hip femoral neck fracture, displaced. POSTOPERATIVE DIAGNOSIS: Left hip femoral neck fracture, displaced. PROCEDURE PERFORMED: Left hip hemiarthroplasty. SURGEON: Rolando Luke M.D. SEARCH ENGINE OPTIMIZATION STRATEGIST: Madeline Mcmillan PA-C. ANESTHESIA: General endotracheal tube by Dr. Farshad Reid. FLUIDS: 1100 mL crystalloid. ESTIMATED BLOOD LOSS: Approximately 50 mL IMPLANTS UTILIZED: [employer] Synergy unipolar hemiarthroplasty system, size 12 press fit stem, +0 taper sleeve assembly and 54 mm unipolar head. DESCRIPTION OF PROCEDURE: After proper identification of the patient and the operative site in the preoperative holding area, the patient and multiple family members present including his . The patient has serious underlying medical comorbidities and after reviewing the treatment options, the family wished to proceed with the above. Anesthesia discussed in detail, the potential risks with the general anesthetic and his current medical condition and setting. They wished to proceed. The patient was brought back to the operative suite. After induction of satisfactory general endotracheal anesthesia, the patient was carefully positioned in the right lateral decubitus position. Pelvis was stabilized. Left hip was sterilely prepped and draped in usual manner. Final skin draping was with Ioban. Posterior approach to the hip was planned. Skin was incised sharply. Full thickness skin flaps were developed. Gluteal fascia was incised longitudinally. Muscle fibers were spread bluntly. Charnley retractor was carefully positioned to retract the soft tissues. At this point, piriformis tendon was identified and tagged. Short external rotators were carefully divided. A T-shaped capsulotomy was performed and tagged. Fracture hematoma was carefully evacuated. Cork screw was utilized to remove the femoral head. Comminuted neck fracture was noted and femoral neck osteotomy was performed approximately 1 cm above the lesser trochanter. Head measured [address] [address] OPERATIVE REPORT Name: CLAY RAMOS Room #: 355-P [facility] IN M.R.#: [id number] Admission: 03/26/18 Attend Phys: Dimitri Roy MD Discharge: Date of : 33 Report #: [id number] and provided good a suction fit within the acetabulum. Degenerative changes were noted about the femoral head and mild degenerative changes were noted in the acetabulum. No acute fractures were noted. This area was thoroughly irrigated with normal saline. Hand reaming and then serial broaching up to a size 12 stem provided the best overall fit and stability. The patient had reasonably well maintained cortices on his preoperative radiographs and in the setting of trying to reduce his anesthetic as much as possible, a press fit prosthesis was chosen. The trial had good fit and stability. A +0 and 54 mm head provided equal leg lengths, excellent stability, negative Shuck maneuver. Trial implants were removed. The joint was thoroughly irrigated with antibiotic irrigant. The implant was then carefully impacted into position, had excellent fit, matched the patient's [place] anteversion of approximately 15 degrees. Trial implants were again placed on the stem reduced and the final implants measured at +0 and 54 mm head. This was reduced after the hip was thoroughly irrigated with antibiotic irrigant. The capsule was closed with #2 FiberWire. Piriformis tendon was reapproximated with #2 FiberWire, and #1 Vicryl was used to close the gluteal fascia, 0 Vicryl to the deep subcutaneous tissues and 2-0 Vicryl to the more superficial layer. This was followed by monica. Sterile dressing was applied as well as hip abduction orthosis. At the time of dictation, the patient was still in the operative suite. Anesthesia was going to attempt to extubate the patient in the recovery room and discussed due to the patient's serious multiple medical comorbidities and altered mental status, inability to communicate. They discussed they did not know if this would be possible in the recovery room or not or would potentially occur later in the Intensive Care Unit. <ELECTRONICALLY SIGNED> By: Rolando Luke MD 04/06/18 1011 182 50 Rolando Luke MD /nt
--- NOTE | ~2018-03-26 | EKG ---
[address] [address] ELECTROCARDIOGRAM REPORT Name: CLAY RAMOS Room #: 355-P ADM IN M.R.#: [id number] Admission: 03/26/18 Attend Phys: Dimitri Roy MD Discharge: Date of : 33 Report #: [id number] THIS REPORT FOR: //name// [facility] Test Date: 2018-04-06 Test Time: 03:34:39 Pat Name: CLAY RAMOS Department: Room: 355 P Gender: M Classification And Treatment Director: marcelo moreau : 1935 Requested By: Dimitri Roy Order Number: [id number] MD: Martín Moreira Measurements Intervals [place] Rate: 84 P: [place]: QRS: 90 QRSD: 83 T: 88 QT: 372 QTc: 440 Interpretive Statements Atrial flutter with predominant 4:1 AV block Ventricular premature complex Borderline right axis deviation Consider left ventricular hypertrophy Compared to ECG 03/29/2018 10:17:20 Electronically Signed On 04-07-2018 16:46:36 CDT by Martín Moreira [email or web address] <ELECTRONICALLY SIGNED> By: Martín Moreira MD 04/07/18 1646 0334 0334 Martín Moreira MD /EPI
--- NOTE | ~2018-03-26 | EKG ---
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1935 Requested By: Mike Gonzalez Order Number: [id number] MD: Martín Moreira Measurements Intervals [place] Rate: 62 P: -59 [place]: 184 QRS: 57 QRSD: 110 T: 155 QT: 426 QTc: 433 Interpretive Statements Atrial fibrillation Ventricular-paced complexes No further analysis attempted due to paced rhythm Compared to ECG 02/19/2018 12:17:30 Sinus rhythm no longer present Electronically Signed On 03-26-2018 22:33:28 CDT by Martín Moreira [email or web address] <ELECTRONICALLY SIGNED> By: Martín Moreira MD 03/26/18 2233 2154 Martín Moreira MD /EPI
--- NOTE | ~2018-03-26 | HC ---
[facility] [place] [address] CONSULTATION Name: CLAY RAMOS Room #: 355-P [facility] IN M.R.#: [id number] Admission: 03/26/18 Attend Phys: Dimitri Roy MD Discharge: Date of : 33 Report #: [id number] THIS REPORT FOR: //name// CC: Gerard Roy TYPE OF REPORT: Pulmonary consultation. REFERRING PHYSICIAN: Dimitri Roy M.D. REASON FOR REFERRAL: Hypoxia. HISTORY OF PRESENT ILLNESS: The patient is an 82-year-old white male who was admitted on March 26 following a fall. He sustained a left femoral neck fracture. Yesterday, the patient underwent left hip hemiarthroplasty. Postoperatively, the patient was found to be hypoxic. A pulmonary consultation was requested. The patient is a resident of the [facility]. The patient has a history of dementia. According to the , he has been there for the past 10 days. His appetite has been poor while he was at the intermediate. She states that her has had a good appetite all along until recently. In further questioning, appears to not have full understanding of the patient's medical problems. When asked about Parkinson's, she states she has never heard of this. Currently, he is awake but is not verbalized. He was weak and emaciated. He is on 2 liters of O2. PAST MEDICAL HISTORY: As mentioned above. He has a history of chronic kidney disease, hypertension, coronary artery disease, status post coronary artery bypass surgery in 2016, status post permanent pacemaker placement, benign prostatic hypertrophy, advanced dementia, neuropathy, diabetes mellitus type 2, debility and weakness, hypothyroidism and past history of tobacco use. PAST SURGICAL HISTORY: As mentioned above. ALLERGIES: None noted. MEDICATIONS: From the intermediate includes Cardura, Lopressor, Flomax, Synthroid, MiraLax, aspirin, fenofibrate, Namenda, Uniplex, Lopressor, Norvasc, insulin supplements, Desyrel, Ativan and metolazone. FAMILY HISTORY: Noncontributory. SOCIAL HISTORY: The patient has smoked in the past. No history of alcohol use. According to the , he has been at the intermediate, only 10 days ago. The [address] [address] CONSULTATION Name: CLAY RAMOS Room #: 355-P [facility] IN M.R.#: [id number] Admission: 03/26/18 Attend Phys: Dimitri Roy MD Discharge: Date of : 33 Report #: [id number] main reason being he was getting too weak along with unable to do daily living activities. REVIEW OF SYSTEMS: As mentioned above. Notable for worsening dementia for the past several years, it appears the patient has a progressive weakness along with the weight loss otherwise deferred as history has been not reliable. PHYSICAL EXAMINATION: GENERAL: He is awake, alert and appears weak, mildly dyspneic. VITAL SIGNS: Temperature is 97.6 degrees Fahrenheit, pulse of 100, respiratory rate is 20, blood pressure 130/68 mmHg and saturation 90%. HEENT: Normocephalic and atraumatic. NECK: Supple, without any lymphadenopathy or thyromegaly. CHEST: Breath sounds are fair due to poor effort. Few scattered crackles in the bases. CARDIOVASCULAR: Heart sounds are distant. No obvious murmurs or gallop, is irregular. Pulses are 2+/4+ bilaterally. ABDOMEN: Soft and nontender. No organomegaly or masses felt. GENITOURINARY: Deferred. RECTAL: Deferred. EXTREMITIES: No cyanosis, clubbing or edema. MUSCULOSKELETAL: Notable for moderately severe cachexia. RADIOLOGICAL DATA: Portable chest x-ray shows cardiomegaly, increased interstitial markings, right worse than the left. Lung volumes are reduced bilaterally. Echocardiogram showed ejection fraction approximately 50%, dilated left atrium along with dilated right atrium, moderate mitral regurgitation and pulmonary artery pressure measures 65 mmHg. LABORATORY DATA: Procalcitonin level performed a few days ago, was normal. Sodium 145, potassium 5.3, chloride of 116, CO2 is 18, BUN is 49 and creatinine is 3.7. Liver enzymes on admission was mildly abnormal. WBC 8700, hemoglobin 9.9, platelets are mildly reduced at 113,000. Albumin 3.1. Arterial blood gas shows a pH 7.29, pCO2 of 31 and pO2 108 on 50% FiO2. IMPRESSION: 1. Acute hypoxic respiratory failure in this 82-year-old -[place] male. Chest x-ray shows there is increase in interstitial marking consistent with heart failure. He has chronic kidney disease felt to be advanced age. He is also developing metabolic acidosis. The patient's hypoxia is likely related to heart failure. Pneumonia is felt to be less likely, though cannot be ruled out. 2. Pulmonary hypertension by echocardiogram. He has mitral regurgitation. The patient has smoked cigarettes in the past. Possible component of chronic obstructive pulmonary disease is suspected. 3. Chronic kidney disease. 4. Metabolic acidosis, appears to be somewhat worse following surgery. Renal [facility] [address] [place] [address] CONSULTATION Name: CLAY RAMOS Room #: 355-P [facility] IN M.R.#: [id number] Admission: 03/26/18 Attend Phys: Dimitri Roy MD Discharge: Date of : 33 Report #: [id number] is following. 5. Hyperkalemia. 6. Anemia. 7. Recent fall with left femoral neck fracture status post surgery. 8. Coronary artery disease, status post coronary bypass surgery. Echocardiogram showed ejection fraction of 50%. As mentioned above, suspect heart failure. 9. Progressive dementia, malnutrition, progressive weakness and debility. RECOMMENDATIONS: We will continue O2 to keep saturation 90%. Recommend diuresis. It is unclear if he has pneumonia, though I think it is reasonable to cover for aspiration pneumonia or other nosocomial infections. DVT and GI prophylaxis are recommended. Overall, outlook appears to be poor given advanced dementia, cachexia, malnutrition and weakness. Thank you for this consultation. <ELECTRONICALLY SIGNED> By: Paolo Lopez MD 03/31/18 1627 1418 2242 Paolo Lopez MD /nt
--- NOTE | ~2018-03-26 | HC ---
[facility] [place] [address] CONSULTATION Name: CLAY RAMOS Room #: 452-P ADM IN M.R.#: [id number] Admission: 03/26/18 Attend Phys: Dimitri Roy MD Discharge: Date of : 33 Report #: [id number] THIS REPORT FOR: //name// CC: Gerard Roy DATE OF SERVICE: 03/27/2018 ATTENDING PHYSICIAN: Dr. Roy. REASON FOR CONSULTATION: Pulmonary infiltrates. HISTORY OF PRESENT ILLNESS: An 82-year-old -[place] man, admitted through the Emergency Room with left hip pain, fracture of left hip, scheduled for open reduction and internal fixation this afternoon. The patient has pulmonary infiltrates, particularly right lung. He is on Zosyn. ID opinion is requested. PAST MEDICAL HISTORY: Hypertension. Chronic kidney disease. Coronary artery bypass grafting, status post permanent pacemaker. Benign prostatic hypertrophy and urinary retention. Dementia. Diabetes mellitus.. Hypothyroidism. Parkinson disease. SOCIAL HISTORY: Resides in local [facility]. FAMILY HISTORY: Unable to obtain. REVIEW OF SYSTEMS: Unable to obtain. The patient complained of left hip pain, otherwise unable to obtain any information. PHYSICAL EXAMINATION: GENERAL: Elderly -[place] man, somnolent, in no distress. VITAL SIGNS: Presenting following vital signs: Temperature 92.7, requiring warming blanket, 97.7 after that. Pulse 70, respirations 17, BP 137/77. Height 6 feet 1 inch, weight 191.5 pounds. HEENMT: Arcus cornealis. Mouth: Dry mucous membrane. NECK: Supple. LUNGS: Crackles right lung posteriorly. HEART: Irregularly irregular, with possible diastolic murmur in the mitral focus. ABDOMEN: Soft, no masses or megaly. EXTREMITIES: Reveal pretibial edema. Pain on motion of the left hip. NEUROLOGIC: Unable to evaluate. LABORATORY DATA: Sodium 144, potassium 4.4, CO2 of 21, BUN 52, creatinine 3.4, glucose 128, SGOT 666, lipase 577. Amylase normal. Albumin 3.1 g/dL. Protime [facility] [address] [place] [address] CONSULTATION Name: CLAY RAMOS Room #: 452-P [facility] IN M.R.#: [id number] Admission: 03/26/18 Attend Phys: Dimitri Roy MD Discharge: Date of : 33 Report #: [id number] 12.3 seconds. White blood cell count 7700, hemoglobin 9.9 g/dL, platelets 117,000. White blood cell count differential revealed 85% segmented neutrophils, 7% lymphocytes. Urinalysis revealed trace protein, otherwise negative. ABGs revealed pH 7.34, pCO2 of 34, pO2 of 103, bicarbonate 18.6, lactate normal. These set of gases on FiO2 of 100%. Blood, sputum cultures were obtained and those are pending at the time of this dictation. RADIOLOGY EVALUATION: Hip x-ray revealed fracture of left femoral neck. Chest x-ray revealed coronary artery bypass grafting, left-sided permanent pacemaker and right-sided pulmonary infiltrates and mild cardiomegaly. ASSESSMENT: 1. Question pulmonary infiltrates -- rule out aspiration pneumonia versus mild congestive heart failure. 2. Dementia. 3. Significant hypoxemia. 4. Hypothermia, rule out sepsis. 5. Chronic kidney disease. SUGGESTIONS: Recommend continued treatment with Zosyn 3.375 grams IV every 12 hours. Obtain MRSA screen, single dose vancomycin. Dr. Roy, thank you for requesting my suggestions. <ELECTRONICALLY SIGNED> By: Dago Moreira MD 03/28/18 0922 0846 1459 Dago Moreira MD /nt
--- NOTE | ~2018-03-26 | EKG ---
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 : 1935 Requested By: Yulisa Cruz Order Number: [id number] MD: Dilip Bailey Measurements Intervals [place] Rate: 75 P: MN: QRS: 85 QRSD: 93 T: 116 QT: 363 QTc: 406 Interpretive Statements Atrial fibrillation Anterior infarct, old Nonspecific T abnormalities Compared to ECG 03/27/2018 15:57:06 Atrial fibrillation is replaced sinus rhythm Electronically Signed On 03-30-2018 10:07:11 CDT by Dilip Bailey [email or web address] <ELECTRONICALLY SIGNED> By: Dilip Bailey MD, [facility] 03/30/18 1007 1017 16 Dilip Bailey MD, [facility] /EPI
--- NOTE | ~2018-03-26 | 2DMMODE ---
[facility] [employer] [place] [address] 2 D/M-MODE ECHOCARDIOGRAM Name: CLAY RAMOS Room #: 244-P ADM IN M.R.#: [id number] Admission: 03/26/18 Attend Phys: Dimitri Roy MD Discharge: Date of : 33 Date of Service: 03/27/18 1547 Report #: [id number] THIS REPORT FOR: //name// APPROVED REPORT Study performed: 03/27/2018 14:38:42 EXAM: Comprehensive 2D, Doppler, and color-flow Echocardiogram Patient Location: ICU Room #: [facility] Status: routine BSA: 2.11 HR: 68 bpm BP: 147/78 mmHg Rhythm: Pacemaker Other Information Study Quality: Good Indications Diabetes Pacemaker CAD Hypertension/HDD CABG 2D Dimensions RVDd: 42.22 mm IVSd: 9.89 (7-11mm) LVOT Diam: 20.82 (18-24mm) LVDd: 44.83 mm PWd: 9.53 (7-11mm) Ascending Ao: 30.97 (22-36mm) LVDs: 32.64 (25-40mm) Aortic Root: 27.24 mm IVC: 26.00 mm Volumes Left Atrial Volume (Systole) Single Plane 4CH: 78.90 mL Single Plane 2CH: 93.18 mL LA ESV Index: 46.00 mL/m2 Aortic Valve AoV Peak All.: 1.22 m/s AO Peak Gr.: 5.95 mmHg LVOT Max P.24 mmHg LVOT Max V: 0.75 m/s ANGELIKA Vmax: 2.09 cm2 [facility] [address] [address] 2 D/M-MODE ECHOCARDIOGRAM Name: CLAY RAMOS Room #: 244-P [facility]#: [id number] Admission: 03/26/18 Attend Phys: Dimitri Roy MD Discharge: Date of : 33 Date of Service: 03/27/18 1547 Report #: [id number] Mitral Valve E/A Ratio: 1.1 MV Decel. Time: 240.20 ms MV E Max All.: 0.83 m/s MV A All.: 0.75 m/s MV PHT: 69.66 ms IVRT: 110.73 ms Pulmonary Valve PV Peak All.: 0.82 m/s PV Peak Gr.: 2.71 mmHg Pulmonary Vein P Vein S: 0.51 m/s P Vein A: 0.24 m/s P Vein D: 0.45 m/s P Vein A Dur.: 110.7 msec P Vein S/D Ratio: 1.13 Tricuspid Valve TR Peak All.: 3.71 m/s TR Peak Gr.: 55.10 mmHg PA Pressure: 65.00 mmHg Left Ventricle The left ventricle is normal size. There is normal LV segmental wall motion. There is normal left ventricular wall thickness. The left ventricular systolic function is normal. The left ventricular ejection fraction is within the normal range. LVEF is 50-55%. This study is not technically sufficient to allow evaluation of the LV diastolic function. Right Ventricle Right ventricle is at the upper limits of normal. The right ventricular systolic function is normal. Pacemaker lead is present in the right ventricle. Atria Left atrium is dilated. Right atrium is dilated. Pacemaker lead is present in the right atrium. Aortic Valve The aortic valve is normal in structure Focal ecgodensity likely calcification but vegetation cannot be excluded No aortic regurgitation is present. There is no aortic valvular stenosis. Mitral Valve [facility] [address] [place] [address] 2 D/M-MODE ECHOCARDIOGRAM Name: CLAY RAMOS Room #: 244-P [facility] IN .R.#: [id number] Admission: 03/26/18 Attend Phys: Dimitri Roy MD Discharge: Date of : 33 Date of Service: 03/27/18 1547 Report #: [id number] The mitral valve is normal in structure. Mild to moderate mitral regurgitation. No evidence of mitral valve stenosis. Tricuspid Valve The tricuspid valve is normal in structure. There is mild to moderate tricuspid regurgitation. Estimated PAP 65mmHg. There is moderate pulmonary hypertension. Pulmonic Valve The pulmonary valve is normal in structure. Trace pulmonic regurgitation. Great Vessels The aortic root is normal in size. IVC is dilated and collapses <50% with inspiration. Pericardium There is no pericardial effusion. <Conclusion> The left ventricle is normal size. LVEF is 50-55%. Pacemaker lead is present in the right ventricle. Left atrium is dilated. Right atrium is dilated. Pacemaker lead is present in the right atrium. The aortic valve is normal in structure Focal ecgodensity likely calcification but vegetation cannot be excluded The mitral valve is normal in structure. Mild to moderate mitral regurgitation. The tricuspid valve is normal in structure. There is mild to moderate tricuspid regurgitation. Estimated PAP 65mmHg. There is moderate pulmonary hypertension. The pulmonary valve is normal in structure. Trace pulmonic regurgitation. There is no pericardial effusion. <ELECTRONICALLY SIGNED> By: Kris Burdick MD 03/27/18 1547 1547 1547 Kris Burdick MD /INF
--- NOTE | ~2018-03-26 | EKG ---
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 : 1935 Requested By: Trish Castellanos Order Number: [id number] MD: Dilip Bailey Measurements Intervals [place] Rate: 68 P: 75 SC: 174 QRS: 66 QRSD: 93 T: 101 QT: 400 QTc: 426 Interpretive Statements Sinus rhythm Poor R wave progression Compared to ECG 03/26/2018 21:54:24 Ventricular pacing is no longer present Electronically Signed On 03-27-2018 17:19:27 CDT by Dilip Bailey [email or web address] <ELECTRONICALLY SIGNED> By: Dilip Bailey MD, [facility] 03/27/18 1719 155 155 Dilip Bailey MD, [facility] /EPI
[~2018-03-26 21:08] MED LIST: ARICEPT 5 MG TAB5 MG PO; ASPIR 8181 M1 PO; ATIVAN0.5 MG PO; AVODART0.5 MG PO; CARDURA4 MG PO; CLARITIN10 MG PO; COZAAR 50 MG TA50 M2 PO; DEMADEX20 MG PO; FLOMAX0.4 MG PO; LANTUS100 UNIT/M SUBQ; LEVAQUIN 250 M250 MG PO; LOPRESSOR50 PO; LYRICA 50 MG50 MG PO; LYRICA25 MG PO; MIRALAX17 GM PO; NAMENDA 5 MG TAB5 M1 PO; NAMENDA XR7 MG PO; NEURONTIN 300300 M1 PO; NORVASC10 MG PO; PROBIOTIC1 EAC1 PO; SINEMET 25-1001 EAC1 PO; SYNTHROID50 MCG PO; TERAZOSIN HCL10 MG PO; TOPROL XL25 MG PO; TRIGLIDE160 MG PO; VITRUM SENIOR1 EACH PO
[2018-03-26 21:09] VITALS: BP 114/72
[2018-03-26 21:43] LABS: HEMATOCRIT 28.8 % (42.0-52.0); HEMOGLOBIN 9.9 gm/dL (14.0-18.0); MCH 29.6 pg (26.0-34.0); MCHC 34.6 g/dL (28.0-37.0); MCV 85.5 fL (80.0-100.0); PLATELET COUNT 117 thou/uL (150-400); RBC 3.36 mil/uL (4.50-6.00); RDW 19.5 % (10.5-14.5); WBC 7.7 thou/uL (4.0-11.0)
[2018-03-26 21:51] LABS: CALCIUM 9.1 mg/dL (8.5-10.1); CREATININE 3.3 mg/dL (0.7-1.3); POTASSIUM 5.9 mmol/L (3.5-5.1)
[2018-03-26 21:56] LABS: ALBUMIN 3.1 g/dL (3.4-5.0); APTT 34.1 Seconds (24.5-32.8); INR 1.2; PROTIME 12.3 Seconds (9.3-11.4); TOTAL BILIRUBIN 0.7 mg/dL (<0.1-1.0); TOTAL PROTEIN 7.1 g/dL (6.4-8.2)
[2018-03-26 22:48] VITALS: BP 142/82
[2018-03-26 23:34] VITALS: BP 126/72
[2018-03-26 23:41] LABS: BE(vivo) -6.3 mmol/L (-2 to +3); HCO3 18.6 mmol/L (22.0-26.0); PCO2 34.8 mmHg (35.0-45.0); PO2 103.4 mmHg (80.0-100.0); pH 7.346 (7.360-7.450); sO2 97.5 % (92.0-98.0)
[2018-03-26 23:53] LABS: AMYLASE 90 U/L (25-115); LIPASE 577 U/L (73-393)
[2018-03-26 23:55] LABS: URINE BILIRUBIN NEGATIVE (Negative); URINE BLOOD NEGATIVE (Negative); URINE CLARITY CLEAR; URINE COLOR YELLOW; URINE GLUCOSE-RANDOM* NEGATIVE (Negative); URINE KETONES NEGATIVE (Negative); URINE LEUKOCYTES NEGATIVE (Negative); URINE NITRITE NEGATIVE (Negative); URINE PROTEIN (DIPSTICK) TRACE (Negative); URINE UROBILINOGEN 0.2 E.U./dl (0.2-1.0)
[2018-03-26 23:58] LABS: POLYS 85.3 % (36.0-66.0)
[2018-03-26 23:59] LABS: BASOPHILS 0.2 % (0.0-2.0); EOSINOPHILS 2.3 % (0.0-3.0); LYMPHOCYTES 7.5 % (24.0-44.0); MONOCYTES 4.7 % (1.0-8.0)
[2018-03-27] VITALS (21 sets, daily range): BP systolic 110–154; BP diastolic 68–83
[2018-03-27] LABS: ABSOLUTE NEUTROPHILS 6.5 thou/uL (1.4-8.2)
[2018-03-27] MEDS ORDERED: FLOMAX0.4 MG PO (03:56)
[2018-03-27] MEDS ORDERED: MIRALAX17 GM PO (03:56)
[2018-03-27] MEDS ORDERED: LEVOTHYROXINE50 MCG PO (03:57)
[2018-03-27] MEDS ORDERED: ASPIR-LOW81 MG PO (03:57)
[2018-03-27] MEDS ORDERED: FENOFIBRATE160 MG PO (03:58)
[2018-03-27] MEDS ORDERED: NAMENDA 5 MG TAB5 M1 PO (03:59)
[2018-03-27] MEDS ORDERED: UNICOMPLEX M TA1 TA1 PO (04:00)
[2018-03-27] MEDS ORDERED: LOPRESSOR50 PO (04:02)
[2018-03-27] MEDS ORDERED: NORVASC10 MG PO (04:10)
[2018-03-27] MEDS ORDERED: DOXAZOSIN MESYLA4 MG PO (04:11)
[2018-03-27] MEDS ORDERED: LANTUS100 UNIT/M SUBQ (04:12)
[2018-03-27] MEDS ORDERED: TRAZODONE HCL50 MG PO (04:15)
[2018-03-27] MEDS ORDERED: ATIVAN0.5 MG PO (04:15)
[2018-03-27] MEDS ORDERED: METOLAZONE 2.52.5 M1 PO (04:17)
[2018-03-27 04:31] LABS: CALCIUM 9.1 mg/dL (8.5-10.1); CREATININE 3.4 mg/dL (0.7-1.3)
[2018-03-27 04:34] LABS: POTASSIUM 4.4 mmol/L (3.5-5.1)
[2018-03-27 23:27] LABS: CALCIUM 9.2 mg/dL (8.5-10.1); CREATININE 3.8 mg/dL (0.7-1.3); POTASSIUM 5.2 mmol/L (3.5-5.1)
[2018-03-28 04:28] LABS: CREATININE 3.5 mg/dL (0.7-1.3); POTASSIUM 4.7 mmol/L (3.5-5.1)
[2018-03-28 07:37] VITALS: BP 147/73
[2018-03-28 12:12] VITALS: BP 139/74
[2018-03-28 19:26] VITALS: BP 122/71
[2018-03-28 23:41] LABS: CALCIUM 9.2 mg/dL (8.5-10.1); CREATININE 3.6 mg/dL (0.7-1.3); POTASSIUM 5.3 mmol/L (3.5-5.1)
[2018-03-29] VITALS (10 sets, daily range): BP systolic 146–189; BP diastolic 74–108
[2018-03-29 05:27] LABS: HEMATOCRIT 30.9 % (42.0-52.0); HEMOGLOBIN 10.4 gm/dL (14.0-18.0); MCH 28.7 pg (26.0-34.0); MCHC 33.6 g/dL (28.0-37.0); MCV 85.2 fL (80.0-100.0); RBC 3.63 mil/uL (4.50-6.00); RDW 19.3 % (10.5-14.5); WBC 8.5 thou/uL (4.0-11.0)
[2018-03-29 05:43] LABS: CALCIUM 9.3 mg/dL (8.5-10.1); CREATININE 3.6 mg/dL (0.7-1.3); POTASSIUM 5.3 mmol/L (3.5-5.1)
[2018-03-29 20:32] LABS: BE(vivo) -9.9 mmol/L (-2 to +3); HCO3 15.5 mmol/L (22.0-26.0); PCO2 32.4 mmHg (35.0-45.0); PO2 108.3 mmHg (80.0-100.0)
[2018-03-29 20:33] LABS: pH 7.298 (7.360-7.450)
[2018-03-29 21:33] LABS: HEMATOCRIT 30.3 % (42.0-52.0); HEMOGLOBIN 10.5 gm/dL (14.0-18.0); MCH 30.1 pg (26.0-34.0); MCHC 34.8 g/dL (28.0-37.0); MCV 86.7 fL (80.0-100.0); RBC 3.49 mil/uL (4.50-6.00); RDW 20.3 % (10.5-14.5); WBC 9.8 thou/uL (4.0-11.0)
[2018-03-29 21:37] LABS: CALCIUM 9.4 mg/dL (8.5-10.1); CREATININE 3.7 mg/dL (0.7-1.3)
[2018-03-29 21:38] LABS: POTASSIUM 5.3 mmol/L (3.5-5.1)
[2018-03-29 22:04] LABS: BE(vivo) -10.4 mmol/L (-2 to +3); HCO3 14.9 mmol/L (22.0-26.0); PCO2 31.3 mmHg (35.0-45.0); PO2 108.2 mmHg (80.0-100.0)
[2018-03-29 22:05] LABS: sO2 97.5 % (92.0-98.0)
[2018-03-29 22:06] LABS: pH 7.296 (7.360-7.450)
[2018-03-30] VITALS (31 sets, daily range): BP systolic 121–163; BP diastolic 53–116
[2018-03-30 05:42] LABS: HEMOGLOBIN 9.9 gm/dL (14.0-18.0); MCH 29.3 pg (26.0-34.0); MCHC 34.2 g/dL (28.0-37.0); MCV 85.9 fL (80.0-100.0); RBC 3.38 mil/uL (4.50-6.00); RDW 20.2 % (10.5-14.5); WBC 8.7 thou/uL (4.0-11.0)
[2018-03-30 05:52] LABS: CALCIUM 9.4 mg/dL (8.5-10.1); CREATININE 3.7 mg/dL (0.7-1.3); POTASSIUM 5.3 mmol/L (3.5-5.1)
[2018-03-30 18:39] LABS: HCO3 17.7 mmol/L (22.0-26.0); pH 7.348 (7.360-7.450)
[2018-03-30 18:40] LABS: sO2 95.7 % (92.0-98.0)
[2018-03-31 04:10] VITALS: BP 128/66
[2018-03-31 05:47] LABS: HEMATOCRIT 29.7 % (42.0-52.0); MCH 28.9 pg (26.0-34.0); MCHC 33.8 g/dL (28.0-37.0); MCV 85.6 fL (80.0-100.0); RBC 3.47 mil/uL (4.50-6.00); RDW 20.1 % (10.5-14.5); WBC 7.6 thou/uL (4.0-11.0)
[2018-03-31 06:00] LABS: CALCIUM 9.7 mg/dL (8.5-10.1); CREATININE 4.2 mg/dL (0.7-1.3)
[2018-03-31 08:34] VITALS: BP 107/77
[2018-03-31 12:03] VITALS: BP 119/62
[2018-03-31 15:55] VITALS: BP 106/58
[2018-03-31 19:47] VITALS: BP 1125/63
[2018-04-01 03:37] VITALS: BP 130/61
[2018-04-01 07:34] LABS: HEMATOCRIT 25.9 % (42.0-52.0); HEMOGLOBIN 8.9 gm/dL (14.0-18.0); MCH 29.4 pg (26.0-34.0); MCHC 34.5 g/dL (28.0-37.0); MCV 85.2 fL (80.0-100.0); PLATELET COUNT 126 thou/uL (150-400); RBC 3.03 mil/uL (4.50-6.00); RDW 19.3 % (10.5-14.5); WBC 6.9 thou/uL (4.0-11.0)
[2018-04-01 07:42] LABS: CALCIUM 8.8 mg/dL (8.5-10.1); CREATININE 4.5 mg/dL (0.7-1.3); POTASSIUM 4.8 mmol/L (3.5-5.1)
[2018-04-01 07:49] VITALS: BP 127/72
[2018-04-01 09:11] LABS: ABSOLUTE NEUTROPHILS 6.1 thou/uL (1.4-8.2); ANISOCYTOSIS 2+; HYPOCHROMASIA SLIGHT; NUCLEATED RBCS 1 /100WBC; PLATELET ESTIMATE NORMAL; POLYCHROMASIA 1+
[2018-04-01 11:44] VITALS: BP 122/79
[2018-04-01 15:56] VITALS: BP 121/71
[2018-04-01 20:23] VITALS: BP 137/64
[2018-04-02] VITALS (7 sets, daily range): BP systolic 130–1398; BP diastolic 54–75
[2018-04-03 03:55] VITALS: BP 143/77
[2018-04-03 07:51] VITALS: BP 143/81
[2018-04-03 11:29] VITALS: BP 129/80
[2018-04-03 16:45] VITALS: BP 179/84
[2018-04-03 18:37] VITALS: BP 141/44
[2018-04-03 20:15] VITALS: BP 143/81
[2018-04-04 04:30] VITALS: BP 154/72
[2018-04-04 05:26] LABS: HEMATOCRIT 25.8 % (42.0-52.0); HEMOGLOBIN 8.8 gm/dL (14.0-18.0); MCH 29.4 pg (26.0-34.0); MCHC 34.2 g/dL (28.0-37.0); RDW 18.9 % (10.5-14.5)
[2018-04-04 05:37] LABS: CALCIUM 9.7 mg/dL (8.5-10.1); CREATININE 5.1 mg/dL (0.7-1.3)
[2018-04-04 07:39] VITALS: BP 173/86
[2018-04-04 11:20] VITALS: BP 148/75
[2018-04-04 15:05] VITALS: BP 148/77
[2018-04-04 19:50] VITALS: BP 138/68
[2018-04-05 05:00] VITALS: BP 151/67
[2018-04-05 06:11] LABS: HEMATOCRIT 24.1 % (42.0-52.0); HEMOGLOBIN 8.1 gm/dL (14.0-18.0); MCHC 33.5 g/dL (28.0-37.0); MCV 86.3 fL (80.0-100.0); RBC 2.79 mil/uL (4.50-6.00); RDW 19.1 % (10.5-14.5); WBC 10.1 thou/uL (4.0-11.0)
[2018-04-05 06:27] LABS: CALCIUM 8.9 mg/dL (8.5-10.1); CREATININE 5.3 mg/dL (0.7-1.3); POTASSIUM 4.2 mmol/L (3.5-5.1)
[2018-04-05 08:26] VITALS: BP 134/59
[2018-04-05 12:04] VITALS: BP 158/74
[2018-04-05 16:26] VITALS: BP 147/83
[2018-04-05 19:52] VITALS: BP 102/34
[2018-04-06 00:29] VITALS: BP 124/62
[2018-04-06 03:39] VITALS: BP 124/66
[2018-04-06 06:28] LABS: CALCIUM 9.6 mg/dL (8.5-10.1); CREATININE 4.9 mg/dL (0.7-1.3); POTASSIUM 4.6 mmol/L (3.5-5.1)
[2018-04-06 07:05] VITALS: BP 108/60
[2018-04-06 11:38] VITALS: BP 135/79
[2018-04-06 16:49] VITALS: BP 121/55
[2018-04-06 19:20] VITALS: BP 153/77
[2018-04-07 00:45] VITALS: BP 122/91
[2018-04-07 04:51] VITALS: BP 142/76
[2018-04-07 04:53] LABS: CALCIUM 9.4 mg/dL (8.5-10.1); POTASSIUM 4.6 mmol/L (3.5-5.1)
[2018-04-07 08:48] VITALS: BP 167/99
[2018-04-07 12:10] VITALS: BP 140/79
[2018-04-07 16:15] VITALS: BP 141/75
[2018-04-07 19:40] VITALS: BP 138/77
[2018-04-08 03:50] VITALS: BP 128/67
[2018-04-08 07:42] VITALS: BP 154/60
[2018-04-08 11:46] VITALS: BP 155/69
[2018-04-08] MEDS ORDERED: MSL20MG/ML PO (14:53)
[2018-04-08] MEDS ORDERED: LORAZEPAM 22 MG/1 ML SUBLING (14:55)
[2018-04-08 16:42] VITALS: BP 169/85
[2018-04-08 20:00] VITALS: BP 193/89
[2018-04-09 00:10] VITALS: BP 175/89
[2018-04-09 03:50] VITALS: BP 187/81
[2018-04-09 07:52] VITALS: BP 157/81
[2018-04-09 11:28] VITALS: BP 139/59
== END 2018-04-09 15:23 | disposition hospice, home (50) | DRG 853 ==
LOC: ER 21:08 → EROBS 22:05 → ICU 22:05 → 4W 03-27 19:19 → ICU 03-29 20:02 → 3W 03-31 00:08
PROVIDERS: Emergency Medicine; Internal Medicine; Internal Medicine Pulmonary Disease
PROC: 0SRS0JA Replacement of Left Hip Joint, Femoral Surface with Synthetic Substitute, Uncemented, Open Approach (ICD-10-PCS; principal; 2018-03-29)
PROC: 5A09357 Assistance with Respiratory Ventilation, Less than 24 Consecutive Hours, Continuous Positive Airway Pressure (ICD-10-PCS; principal; 2018-03-29)
PROC: 5A09357 Assistance with Respiratory Ventilation, Less than 24 Consecutive Hours, Continuous Positive Airway Pressure (ICD-10-PCS; 2018-03-30)
DX: A41.9 Sepsis, unspecified organism (principal); S72.002A Fracture of unspecified part of neck of left femur, initial encounter for closed fracture; J69.0 Pneumonitis due to inhalation of food and vomit; J96.01 Acute respiratory failure with hypoxia; I50.33 Acute on chronic diastolic (congestive) heart failure; E87.0 Hyperosmolality and hypernatremia; E87.2 Acidosis; E46 Unspecified protein-calorie malnutrition; N18.4 Chronic kidney disease, stage 4 (severe); I13.0 Hypertensive heart and chronic kidney disease with heart failure and stage 1 through stage 4 chronic kidney disease, or unspecified chronic kidney disease; E11.22 Type 2 diabetes mellitus with diabetic chronic kidney disease; Y95 Nosocomial condition; G20 Parkinson's disease; N40.0 Benign prostatic hyperplasia without lower urinary tract symptoms; E87.5 Hyperkalemia; F02.80 Dementia in other diseases classified elsewhere, unspecified severity, without behavioral disturbance, psychotic disturbance, mood disturbance, and anxiety; E11.40 Type 2 diabetes mellitus with diabetic neuropathy, unspecified; E03.9 Hypothyroidism, unspecified; E11.649 Type 2 diabetes mellitus with hypoglycemia without coma; I25.5 Ischemic cardiomyopathy; I25.10 Atherosclerotic heart disease of native coronary artery without angina pectoris; I27.20 Pulmonary hypertension, unspecified; I34.0 Nonrheumatic mitral (valve) insufficiency; D64.9 Anemia, unspecified; W18.30XA Fall on same level, unspecified, initial encounter; Y93.89 Activity, other specified; Y92.89 Other specified places as the place of occurrence of the external cause; Y99.8 Other external cause status; Z68.23 Body mass index [BMI] 23.0-23.9, adult; Z95.1 Presence of aortocoronary bypass graft; Z95.0 Presence of cardiac pacemaker; Z87.891 Personal history of nicotine dependence; Z79.4 Long term (current) use of insulin; Z79.82 Long term (current) use of aspirin; Z79.899 Other long term (current) drug therapy
CPT/HCPCS: 10047; 10078; 10879; 50010; 50101; 50382; 50414; 50939; 51412; 53000; 53078; 53369; 56460; 56525; 56530; 57103; 62110; 62900; 70005